=== PATIENT | male | born 1980 | race Caucasian/White ===

== ENCOUNTER 2017-05-25 20:42 | Emergency (ER) | payer OTHER, SELFPAY ==
[~2017-05-25] VITALS: Ht 185.4 cm; Wt 109.1 kg
[2017-05-25 20:43] VITALS: BP 159/92
== END 2017-05-25 21:38 | disposition home or self-care (01) ==
LOC: M ED 20:42
DX: S86.011A Strain of right Achilles tendon, initial encounter (principal); S86.111A Strain of other muscle(s) and tendon(s) of posterior muscle group at lower leg level, right leg, initial encounter; X58.XXXA Exposure to other specified factors, initial encounter; Y92.009 Unspecified place in unspecified non-institutional (private) residence as the place of occurrence of the external cause; Y93.89 Activity, other specified; Y99.8 Other external cause status

== ENCOUNTER → 2020-12-11 | Outpatient (REF) | payer BC ==
[2020-12-11 13:59] LABS: BASO # 0.1 10^3/uL (0.0-0.2); BASO % 0.9 % (0.0-1.0); EOS # 0.4 10^3/uL (0.0-0.5); EOS % 5.7 % (0.0-3.0); HEMOGLOBIN 16.5 g/dl (13.5-17.5); LYMPH # 1.8 10^3/uL (1.5-5.0); LYMPH % 26.9 % (24.0-44.0); MEAN CORPUSCULAR HEMOGLOBIN 28.4 pg (27.0-33.0); MEAN CORPUSCULAR VOLUME 85.9 fl (80.0-96.0); MONO # 0.5 10^3/uL (0.0-0.8); NEUTROPHILS # 3.9 10^3/uL (1.5-8.5); NEUTROPHILS % 58.7 % (36.0-66.0); PLATELET COUNT, AUTOMATED 204 10^3/uL (150-450); RED BLOOD COUNT 5.82 10^6/uL (4.30-6.10); WHITE BLOOD COUNT 6.6 10^3/uL (4.0-10.0)
[2020-12-11 14:38] LABS: ALBUMIN 4.5 GM/DL (3.2-5.2); ALT/SGPT 29 U/L (12-78); BILIRUBIN,TOTAL 0.6 MG/DL (0.2-1.0); BLOOD UREA NITROGEN 18 MG/DL (7-18); CALCIUM LEVEL 9.7 MG/DL (8.5-10.1); CARBON DIOXIDE LEVEL 32 MEQ/L (21-32); CHLORIDE LEVEL 105 MEQ/L (98-107); CHOLESTEROL LEVEL 150 MG/DL (<200); CHOLESTEROL RISK RATIO 2.631 (<5); CREATININE FOR GFR 0.94 MG/DL (0.70-1.30); FREE T4 1.04 NG/DL (0.76-1.46); GLOMERULAR FILTRATION RATE > 60.0 (>60); GLUCOSE, FASTING 98 MG/DL (70-100); HDL CHOLESTEROL 57 MG/DL (>40); LDL CHOLESTEROL 76 MG/DL (<100); NON-HDL-C 93 MG/DL; POTASSIUM SERUM 4.9 MEQ/L (3.5-5.1); SODIUM LEVEL 139 MEQ/L (136-145); TRIGLYCERIDES LEVEL 84 MG/DL (<150)
[2020-12-11 16:04] LABS: HEMOGLOBIN A1c 5.2 %
== END ==
LOC: M SFHCPLAZ 09:43
PROVIDERS: ATTEND Physician Assistant Medical
DX: Z00.00 Encounter for general adult medical examination without abnormal findings (principal); E66.9 Obesity, unspecified

== ENCOUNTER → 2020-12-11 | Outpatient (CLI) | payer BC ==
--- NOTE | 2020-12-11 10:43 | REPPI ---
INDICATION: [id number] H/O BACK INJURY COMPARISON: None. TECHNIQUE: AP, lateral, flexion/extension, bilateral oblique, and coned-down views. FINDINGS: Oblique and lateral views suggest bilateral L5 spondylolysis with chronic grade 1 anterolisthesis of approximately 4 mm and associated hypertrophic facet changes, endplate sclerosis, disc space narrowing and marginal spurring. The remainder of the examination is age-appropriate/normal. IMPRESSION: Advanced chronic degenerative changes at L5-S1 secondary to bilateral L5 pars defects. <Electronically signed by Jorge Medley > 12/11/20 [id number]
== END ==
LOC: M PLAIMG 09:44
PROVIDERS: ATTEND Physician Assistant Medical
DX: M51.37 Other intervertebral disc degeneration, lumbosacral region (principal); Z87.828 Personal history of other (healed) physical injury and trauma

== ENCOUNTER → 2021-06-02 | Outpatient (CLI) | payer BC ==
--- NOTE | 2021-06-03 17:04 | SLEEPHOME ---
DATE: 06/02/2021 ORDERED BY: Navya Howard home sleep testing was performed due to concern for the obstructive sleep apnea syndrome in this patient with a history of snoring, excessive somnolence, and frequent headaches. For testing, a nocturnal T3 respiratory monitoring device was used. Continuous record was made of pulse, oxygen saturation, air flow, chest and abdominal strain, and body position. There was 9 hours and 51 minutes of data reviewed. There was 7 hours and 9 minutes marked as time in bed. During the interval marked time in bed, there were 106 respiratory events identified of 10 seconds in duration or greater for a respiratory event index of 14.8. The events were obstructive. Baseline pulse rate is 61 beats per minute. Pulse rate ranged 43-199. Baseline saturation 92%. Saturations fell to 81%. Testing was performed in both the supine and nonsupine positions. IMPRESSION: Abnormal home sleep testing with repetitive respiratory events and oxygen desaturations to 81% with a respiratory event index of 14.8 is consistent with the obstructive sleep apnea syndrome. RECOMMENDATION: The patient should be encouraged to undergo formal sleep evaluation.
== END ==
LOC: M SLEEP HO 10:11
PROVIDERS: ATTEND Physician Assistant Medical
DX: R40.0 Somnolence (principal); R06.83 Snoring; R51.9 Headache, unspecified

== ENCOUNTER → 2021-06-18 | Outpatient (CLI) | payer BC ==
--- NOTE | 2021-06-19 22:00 | REPVR ---
PROCEDURE INFORMATION: Exam: MR Lumbar Spine Without Contrast Exam date and time: 06/18/2021 8:15 AM Age: 41 years old Clinical indication: Low back pain; Additional info: Lumbar ddd TECHNIQUE: Imaging protocol: Multiplanar magnetic resonance images of the lumbar spine without intravenous contrast. COMPARISON: CR SPINE LS W/BENDING 12/11/2020 10:05 AM FINDINGS: Vertebrae: Grade 1 anterolisthesis with severe disc degeneration and reactive endplate edema at L5-S1. Normal alignment the remainder of the lumbar spine. Advanced facet DJD in the lower lumbar spine. Probable L5-S1 bilateral pars defects. 8 mm dorsal synovial cyst on the right and 6 mm dorsal synovial cyst at L4-L5. Spinal cord: Conus medullaris terminates in normal position at L1. No conus compression. Mild fatty infiltration of the filum terminale. L1-L2: No disc herniation or spinal stenosis. No significant foraminal stenosis. L2-L3: No disc herniation or spinal stenosis. No significant foraminal stenosis. L3-L4: No disc herniation or spinal stenosis. No significant foraminal stenosis. L4-L5: No disc herniation or spinal stenosis. No significant foraminal stenosis. L5-S1: Severe disc degeneration with loss of disc height and broad-based posterior disc bulge. Small annulus tear in the left paracentral disc margin. Advanced facet DJD and hypertrophy causing moderate to severe foraminal stenosis with mass effect on the L5 nerve roots, worse on the left. Mild left lateral recess stenosis. No disc herniation or spinal stenosis. Soft tissues: Unremarkable. IMPRESSION: 1. Severe disc degeneration with probable bilateral pars defects at L5-S1. Severe bilateral L5-S1 foraminal stenosis and mild left lateral recess stenosis. 2. Multilevel facet DJD, worst at L5-S1. 3. Mild fatty infiltration of the filum terminale. No signs of cord tethering. Electronically signed by: Josh Figueroa On 06/19/2021 22:00:12 PM
== END ==
LOC: M RAD 07:38
PROVIDERS: ATTEND Physician Assistant Medical
DX: M51.36 Other intervertebral disc degeneration, lumbar region (principal)

== ENCOUNTER → 2021-12-28 | Outpatient (CLI) | payer BC ==
[2021-12-28 10:36] LABS: BASO # 0.1 10^3/uL (0.0-0.2); EOS # 0.4 10^3/uL (0.0-0.5); EOS % 5.7 % (0.0-3.0); HEMATOCRIT 48.6 % (42.0-52.0); HEMOGLOBIN 16.3 g/dl (13.5-17.5); LYMPH % 26.8 % (24.0-44.0); MEAN CORPUSCULAR HEMOGLOBIN 28.4 pg (27.0-33.0); MEAN CORPUSCULAR HGB CONC 33.5 g/dl (32.0-36.5); MEAN CORPUSCULAR VOLUME 84.7 fl (80.0-96.0); MONO # 0.5 10^3/uL (0.0-0.8); MONO % 6.8 % (2.0-8.0); NEUTROPHILS # 4.3 10^3/uL (1.5-8.5); PLATELET COUNT, AUTOMATED 225 10^3/uL (150-450); RED BLOOD COUNT 5.74 10^6/uL (4.30-6.10); WHITE BLOOD COUNT 7.3 10^3/uL (4.0-10.0)
[2021-12-28 11:07] LABS: HEMOGLOBIN A1c 5.2 %
[2021-12-28 11:13] LABS: ALBUMIN 4.1 GM/DL (3.2-5.2); ALT/SGPT 37 U/L (12-78); BILIRUBIN,TOTAL 0.7 MG/DL (0.2-1.0); BLOOD UREA NITROGEN 13 MG/DL (7-18); CALCIUM LEVEL 9.5 MG/DL (8.5-10.1); CARBON DIOXIDE LEVEL 28 MEQ/L (21-32); CHLORIDE LEVEL 108 MEQ/L (98-107); CHOLESTEROL LEVEL 134 MG/DL (<200); CHOLESTEROL RISK RATIO 2.481 (<5); CREATININE FOR GFR 0.76 MG/DL (0.70-1.30); GLOMERULAR FILTRATION RATE > 60.0 (>60); GLUCOSE, FASTING 89 MG/DL (70-100); HDL CHOLESTEROL 54 MG/DL (>40); LDL CHOLESTEROL 65 MG/DL (<100); NON-HDL-C 80 MG/DL; POTASSIUM SERUM 4.3 MEQ/L (3.5-5.1); SODIUM LEVEL 141 MEQ/L (136-145); TOTAL PROTEIN 7.4 GM/DL (6.4-8.2); TRIGLYCERIDES LEVEL 73 MG/DL (<150)
== END ==
LOC: M PLALAB 08:23
PROVIDERS: ATTEND Physician Assistant Medical
DX: Z13.1 Encounter for screening for diabetes mellitus (principal)

== ENCOUNTER 2025-06-12 11:00 | Day surgery (SDC) | payer BC ==
[~2025-06-12] VITALS: Ht 185.4 cm; Wt 104.8 kg
[~2025-06-12 11:00] MED LIST: KETOROLAC 30 MG/ML 1 ML VIAL As Ordered ONE; LIDOCAINE 2% 100 MG/5 ML SDV (FOR ANES.) As Ordered ONE; ONDANSETRON 4MG/2ML VIAL As Ordered ONE; dexAMETHasone 4 MG/ML 1 ML VIAL As Ordered ONE
[2025-06-12] MEDS ORDERED: LR 1,000 ML IV SCH ×2 (11:30→15:45)
[2025-06-12] MEDS ORDERED: MIDAZOLAM INJ 2 MG/2 ML VIAL As Ordered ONE (12:54)
[2025-06-12] MEDS: ceFAZolin SODIUM 2 GM in DEXTROSE 5% (D5W) ADV/MINI-BAG 50 ML IV ONE (13:29)
[2025-06-12] MEDS ORDERED: ACETAMINOPHEN 1000MG/100ML IV BAG As Ordered ONE (13:35)
[2025-06-12] MEDS ORDERED: PERC5TAB12 PO (15:47)
[2025-06-12] MEDS: HYDROMORPHONE HCL 0.5 MG/0.5 ML SYRINGE IV PRN (15:50)
[2025-06-12] MEDS: ONDANSETRON 4MG/2ML VIAL IV PRN (15:55)
[2025-06-12 17:04] VITALS: BP 128/72; TEMP 97.7; O2SAT 97
== END 2025-06-12 17:06 | disposition home or self-care (01) ==
LOC: M SDC 11:00
PROVIDERS: ATTEND Orthopaedic Surgery Hand Surgery
DX: S66.121A Laceration of flexor muscle, fascia and tendon of left index finger at wrist and hand level, initial encounter (principal); S66.123A Laceration of flexor muscle, fascia and tendon of left middle finger at wrist and hand level, initial encounter; W31.2XXA Contact with powered woodworking and forming machines, initial encounter; Y92.9 Unspecified place or not applicable; Y93.H3 Activity, building and construction; Y99.9 Unspecified external cause status
CPT/HCPCS: 26370; 73140; J0131; J0665; J0688; J1100; J1171; J1885; J2250; J2405; J3010